=== PATIENT | female | born 1995 | race Caucasian/White ===

== ENCOUNTER 2018-08-16 17:17 | Emergency (ER) | payer OTHER ==
[2018-08-16 17:36] VITALS: BP 142/79
--- NOTE | 2018-08-16 18:06 | UC ---
Lower Extremity/Ankle HPI - HPI Summary HPI Summary: The patient is a 23-year-old female that tripped and fell yesterday injuring her left ankle. It's that she had a history of left ankle fracture 2 in the past. weightbearing is very painful. - History of Current Complaint Chief Complaint: UCLowerExtremity Stated Complaint: ANKLE INJURY Time Seen by Provider: 08/16/18 18:02 Hx Obtained From: Patient Hx Last Menstrual Period: spotting Onset/Duration: Sudden Onset, Lasting Hours Severity Initially: Moderate Severity Currently: Moderate Pain Intensity: 6 - DECLINES ANALGESIC Aggravating Factor(s): Standing, Ambulation Alleviating Factor(s): Rest Able to Bear Weight: Yes - Allergies/Home Medications Allergies/Adverse Reactions: Allergies Allergy/AdvReac Type Severity Reaction Status Date / Time strawberries Allergy Severe Swelling Uncoded 08/16/18 17:40 Home Medications: Home Medications NK [No Home Medications Reported] 08/16/18 [History Confirmed 08/16/18] PMH/Surg Hx/FS Hx/Imm Hx Previously Healthy: Yes - Surgical History Surgical History: None - Family History Known Family History: Positive: Hypertension, Diabetes - Social History Alcohol Use: Occasionally Substance Use Type: None Smoking Status (MU): Never Smoked Tobacco Review of Systems Constitutional: Negative Skin: Negative Eyes: Negative ENT: Negative Respiratory: Negative Cardiovascular: Negative Gastrointestinal: Negative Genitourinary: Negative Motor: Negative Neurovascular: Negative Musculoskeletal: Arthralgia Neurological: Negative Psychological: Negative All Other Systems Reviewed And Are Negative: Yes Physical Exam Triage Information Reviewed: Yes Appearance: Well-Appearing, No Pain Distress, Well-Nourished Vital Signs: Initial Vital Signs Temp 98 F 08/16/18 17:29 Pulse 72 08/16/18 17:29 Resp 15 08/16/18 17:29 BP 142/79 08/16/18 17:29 Pulse Ox 97 08/16/18 17:29 Vital Signs Reviewed: Yes Eyes: Positive: Conjunctiva Clear ENT: Positive: Hearing grossly normal. Negative: Nasal congestion, Nasal drainage, Muffled voice, Hoarse voice Neck: Positive: Supple Respiratory: Positive: Lungs clear, Normal breath sounds, No respiratory distress Cardiovascular: Positive: RRR, No Murmur Musculoskeletal: Positive: Edema @ - left LM Neurological: Positive: Alert Psychological Exam: Normal Skin Exam: Normal Diagnostics - Radiology No standard instances Radiology Interpretation Completed By: ED Physician Summary of Radiographic Findings: two avulsed fragments distal fib that I think are old Lower Extremity Course/Dx - Differential Dx/Diagnosis Provider Diagnoses: Left ankle sprain. ? avulsion fx distal fibula Discharge - Sign-Out/Discharge Documenting (check all that apply): Patient Departure All imaging exams completed and their final reports reviewed: No - Discharge Plan Condition: Stable Disposition: HOME Patient Education Materials: Ankle Sprain (ED), R.I.C.E. Treatment (ED) Referrals: Melinda Dutta MD [Medical Doctor] - If Needed Additional Instructions: rest elevate ice crutches tylenol or advil THE OFFICIAL XR READING IS PENDING IF THE RADIOLOGIST SEES A FRACTURE PLEASE FOLLOW UP WITH DR. DUTTA IF YOU ANKLE IS NOT BETTER IN 2 WEEKS I SUGGEST YOU GET RECHECKED - Billing Disposition and Condition Condition: STABLE Disposition: Home Images Feet (Multiple View): 1 - tender/swollen
--- NOTE | 2018-08-17 08:39 | UC ---
- Progress Note Progress Note: Patient Name: BRUCE PAULSON Medical Record#: [id number] Ordering Physician: Tyron Vieira MD Acct.#: [id number] : 1995 Age: 23 Sex: F Location: [facility] Exam Date: 08/16/181805 ADM Status: DEP ER Order Information: ANKLE LEFT 3+VWS Accession Number: [id number] CPT: 87278 INDICATION: Left ankle injury. TECHNIQUE: 3 views of the left ankle were obtained. FINDINGS: There is diffuse soft tissue swelling. The bones are normal alignment. There are small well-corticated bony densities adjacent to the distal fibula and anterior talus most consistent with old fracture fragments. No acute fracture is seen. IMPRESSION: SOFT TISSUE SWELLING, NO ACUTE FRACTURE IS SEEN. R0 Preliminary Imaging Read NO DISCREPANCY <Electronically signed by Todd Swann MD in OV> 08/17/18721 Dictated By: Todd Swann MD Dictated Date/Time: 08/17/18721 Transcribed Date/Time: 08/17/18719 Copy to: CC:Tyron Vieira MD; No Primary Care Phys,[facility] Imaging - [facility] Imaging - [facility] [address] [address] ph ([phone]) ph ([phone]) ph ([phone]) This report is only to be considered final once signed by the Provider(s) as displayed in the "<Electronically Signed by >" field (s). Absence of a signature indicates the report is in a draft status and still needs to be finalized. In the event this document was created by someone other than the signing Provider, the individual initiating the document will be listed in the "Entered by:" or "Dictated by:" meyers. 1 of 1 Discharge - Sign-Out/Discharge Documenting (check all that apply): Post-Discharge Follow Up All imaging exams completed and their final reports reviewed: Yes - Discharge Plan Condition: Stable Disposition: HOME Patient Education Materials: Ankle Sprain (ED), R.I.C.E. Treatment (ED) Referrals: Melinda Dutta MD [Medical Doctor] - If Needed Additional Instructions: rest elevate ice crutches tylenol or advil THE OFFICIAL XR READING IS PENDING IF THE RADIOLOGIST SEES A FRACTURE PLEASE FOLLOW UP WITH DR. DUTTA IF YOU ANKLE IS NOT BETTER IN 2 WEEKS I SUGGEST YOU GET RECHECKED - Billing Disposition and Condition Condition: STABLE Disposition: Home
== END 2018-08-16 19:05 | disposition home or self-care (01) ==
LOC: UCEAST 17:17
DX: S93.402A Sprain of unspecified ligament of left ankle, initial encounter (principal); W01.0XXA Fall on same level from slipping, tripping and stumbling without subsequent striking against object, initial encounter; Y92.9 Unspecified place or not applicable
CPT/HCPCS: 99203; G0463